=== PATIENT | female | born 1980 | race Caucasian/White ===

== ENCOUNTER 2017-11-09 09:14 | Emergency (ER) | payer SELFPAY ==
[~2017-11-09] VITALS: Ht 165.1 cm; Wt 77.1 kg
[2017-11-09] MEDS ORDERED: LIDOCAINE HCL 1% LOCAL INJ 20 ML VIAL INJ ONE (09:45)
[2017-11-09 10:07] VITALS: BP 120/78
== END 2017-11-09 10:15 | disposition home or self-care (01) ==
LOC: EDBD → ER 09:14
DX: L02.416 Cutaneous abscess of left lower limb (principal)
CPT/HCPCS: 99283

== ENCOUNTER → 2017-11-09 | Emergency (ER) | payer SELFPAY ==
[~2017-11-09] VITALS: Ht 165.1 cm; Wt 77.1 kg
--- OUTSIDE RECORDS SUMMARY | 2017-11-09 19:41 | XMS REPORT | Continuity of Care Document ---
Author Author [facility] Organization [facility] Address [address] [place] [place] [address] Phone Unavailable Care Team Providers Care [employer] Blind Washer Name Role Phone NO, PCP PCP Unavailable Advance Directives Directive Response Recorded Date/Time Does the patient have an advance directive? No 11/09/17 9:37am If yes, is advance directive on file with [facility]? No 11/09/17 9:37am If not on file with [facility] will patient provide a copy? No 11/09/17 9:37am Do you have a Directive to Physician? No 11/09/17 9:37am Do you have a Medical Power of Pasteuriser Operator? No 11/09/17 9:37am Do you have an out of hospital Do Not Resuscitate Order? No 11/09/17 9:37am Do you have any special needs we should be aware of? No 11/09/17 9:37am Do you have a support person here with you today? No 11/09/17 9:37am Did patient receive Notice of Privacy Practices? Yes 11/09/17 9:37am Did patient receive patient rights and responsibilities? Yes 11/09/17 9:37am Problems No problem information available. Medications No medication information available. Social History Smoking Status Start Date Stop Date Current every day smoker Hospital Discharge Instructions No hospital discharge instruction information available. Plan of Care Discharge Date 11/09/17 10:15am Disposition HOME, SELF-CARE Condition at Discharge Stable Instructions/Education Provided Rash - Nonspecific Forms Provided Work/School Excuse Prescriptions See Medication Section Referrals LOLA CATES MD Order Date: Call for an appointment Address: [address] [place] [address] [address] [place] [address] Additional Instructions/Education Take medication as prescribed Return to ER if worsening of pain, swelling, fever or spreading of redness around skin Functional Status No functional status information available. Allergies, Adverse Reactions, Alerts No known allergies. Immunizations No immunization information available. Vital Signs Acute Vital Signs Vital Response Date/Time Pulse Pulse Rate (adult) 81 bpm (60 - 90) 11/09/2017 10:07am Respiratory Rate 18 bpm (12 - 24) 11/09/2017 10:07am Blood Pressure 120/78 mm Hg 11/09/2017 10:07am Height 5 ft 5 in 11/09/2017 9:29am Weight 170 lb 11/09/2017 9:29am Body Mass Index 28.3 kg/m^2 11/09/2017 9:29am Results No relevant diagnostic test, laboratory data and/or discharge summary information available. Procedures No procedure information available. Encounters Encounter Location Arrival/Admit Date Discharge/Depart Date Attending Provider Registered Emergency Room [facility] 11/09/17 9:14am MARY MCDONALD MD
== END | disposition left against medical advice (07) ==
LOC: EDBD 19:38 → ER 19:38
DX: M25.572 Pain in left ankle and joints of left foot (principal); M25.472 Effusion, left ankle; Z98.890 Other specified postprocedural states